=== PATIENT | female | born 1965 | race Caucasian/White ===

== ENCOUNTER 2016-12-31 17:45 | Emergency (ER) | payer OTHER ==
[2016-12-31 17:59] VITALS: BP 135/73; PULSE 75; TEMP 98.9; BMI 24.1
--- NOTE | 2016-12-31 19:10 | PDOC ---
History of Present Illness - General History Source: Patient Exam Limitations: No Limitations - History of Present Illness Initial Comments: 12/31/16 19:10 The patient is a 51 year old female, with a significant past medical history of arthritis, who presents to the emergency department with right ankle pain status post tripping and twisting her ankle this [place] the park. She reports that the pain in her lateral right ankle is a 8/10 in severity and she is unable to bear weight on her right foot. She denies any other bodily pain or injury. She has no other active medical or sugical problems. Allergies: None Social history: Never smoked <Anai Viramontes - Last Filed: 12/31/16 19:10> <Roland Muro - Last Filed: 01/03/17 07:48> - General Chief Complaint: Pain Stated Complaint: RT ANKLE TO RT HIP PAIN S/P FALL Time Seen by Provider: 12/31/16 18:50 Past History <Anai Viramontes - Last Filed: 12/31/16 19:10> - Past Medical History Other medical history: ARTHRITIS - Psycho/Social/Smoking Cessation Hx Anxiety: No Suicidal Ideation: No Smoking Status: No Smoking History: Never smoked Number of Cigarettes Smoked Daily: 0 Information on smoking cessation initiated: No <Roland Muro - Last Filed: 01/03/17 07:48> - Past Medical History Allergies/Adverse Reactions: Allergies Allergy/AdvReac Type Severity Reaction Status Date / Time No Known Allergies Allergy Verified 08/10/11 23:13 Home Medications: Ambulatory Orders Acetaminophen [Tylenol -] 500 mg PO ONCE PRN 12/31/16 Diclofenac Sodium [Diclofenac Sodium ER] 100 mg PO ASDIR 12/31/16 Review of Systems - Review of Systems Able to Perform ROS?: Yes Comments:: 12/31/16 19:10 CONSTITUTIONAL: Absent: fever, no chills, no fatigue EYES: Absent: visual changes ENT: Absent: ear pain, no sore throat CARDIOVASCULAR: Absent: chest pain, no palpitations RESPIRATORY: Absent: cough, no SOB GI: Absent: abdominal pain, no nausea, no vomiting, no constipation, no diarrhea GENITOURINARY: Absent: dysuria, no frequency, no hematuria MUSKULOSKELETAL: +Right ankle pain and swelling Absent: back pain, no arthralgia, no myalgia SKIN: Absent: rash NEURO: Absent: headache <Anai Viramontes - Last Filed: 12/31/16 19:10> *Physical Exam - Vital Signs Last Vital Signs Temp Pulse Resp BP Pulse Ox 98.9 F 75 18 135/73 96 12/31/16 17:45 12/31/16 17:45 12/31/16 17:45 12/31/16 17:45 12/31/16 17:45 - Physical Exam Comments: 12/31/16 19:11 GENERAL: Well-appearing, well-nourished. No apparent distress. HEENT: Normocephalic, atraumatic. PERRL, EOM intact. CARDIOVASCULAR: Normal S1, S2. Regular rate and rhythm. PULMONARY: Clear to auscultation bilaterally. ABDOMEN: Soft, non-distended, non-tender. EXTREMITIES: +Right ankle swelling and ecchymosis over the lateral right ankle. +Point tenderness over the lateral malleolus. No 5th metatarsal tenderness, no medial malleolar tenderness. No deformity or instability. Full pulses and no sensory or motor deficits in the foot. No gross deformities. SKIN: Warm, dry. No rash NEUROLOGICAL: No focal neurological deficits. <Anai Viramontes - Last Filed: 12/31/16 19:10> - Vital Signs Last Vital Signs Temp Pulse Resp BP Pulse Ox 98.9 F 75 18 135/73 96 12/31/16 17:45 12/31/16 17:45 12/31/16 17:45 12/31/16 17:45 12/31/16 17:45 <Roland Muro - Last Filed: 01/03/17 07:48> Medical Decision Making - Medical Decision Making 01/03/17 07:47 Ankle injury, sprain versus fracture, neurovascular intact, no deformity. Signed out to Dr. Drew 7 PM pending x-ray studies and further orthopedic evaluation and treatment. <Roland Muro - Last Filed: 01/03/17 07:48> *DC/Admit/Observation/Transfer - Attestations Scribe Attestion: 12/31/16 19:11 Documentation prepared by NENA Dos Santos, acting as medical oncologist for Roland Muro MD. <GiaAnai cody - Last Filed: 12/31/16 19:10> <Roland Muro - Last Filed: 01/03/17 07:48> Diagnosis at time of Disposition: Right ankle sprain - Discharge Dispostion Disposition: HOME Condition at time of disposition: Stable - Referrals Referrals: Nii Rodriguez MD [Staff Physician] - 1 week - Patient Instructions Printed Discharge Instructions: DI for Ankle Sprain Additional Instructions: elevate/ ice to ankle as much as possible for the next 2 days crutches for ambulation for 2-3 days ankle splint during day for next week ibuprofen/naproxen/acetaminophen as needed for pain followup with orthopedist(Dr Rodriguez) if pain/swelling persists
--- NOTE | 2016-12-31 19:12 | PDOC ---
*Physical Exam - Vital Signs Last Vital Signs Temp Pulse Resp BP Pulse Ox 98.9 F 75 18 135/73 96 12/31/16 17:45 12/31/16 17:45 12/31/16 17:45 12/31/16 17:45 12/31/16 17:45 Progress Note - Progress Note Progress Note: Care of this patient received from Dr. Adam. Right ankle x-ray negative for fracture or dislocation. Results of study discussed with the patient (language interpretation by hospital staff) Moiz wrap and ankle stirrup splint applied. Crutches with crutch walking instructions given to patient. Discharge instructions reviewed with patient by molder helper, Latrice Umana MA Patient will follow-up with orthopedic group if she has persistent pain in the ankle *DC/Admit/Observation/Transfer Diagnosis at time of Disposition: Right ankle sprain Qualifiers: Encounter type: initial encounter Involved ligament of ankle: tibiofibular ligament Qualified Code(s): S93.431A - Sprain of tibiofibular ligament of right ankle, initial encounter - Discharge Dispostion Disposition: HOME Condition at time of disposition: Stable - Referrals Referrals: Nii Rodriguez MD [Staff Physician] - 1 week - Patient Instructions Printed Discharge Instructions: DI for Ankle Sprain Additional Instructions: elevate/ ice to ankle as much as possible for the next 2 days crutches for ambulation for 2-3 days ankle splint during day for next week ibuprofen/naproxen/acetaminophen as needed for pain followup with orthopedist(Dr Rodriguez) if pain/swelling persists
== END 2016-12-31 20:07 | disposition home or self-care (01) ==
LOC: FER 17:45
DX: S93.401A Sprain of unspecified ligament of right ankle, initial encounter (principal); W18.39XA Other fall on same level, initial encounter; Y93.89 Activity, other specified; Y92.830 Public park as the place of occurrence of the external cause
CPT/HCPCS: 73610-TC-RT; 99283-25

== ENCOUNTER 2019-03-09 23:56 | Emergency (ER) | payer OTHER | END 2019-03-10 01:17 | disposition home or self-care (01) | LOC: FER 03-10 01:17 | PROC: 0H9FXZZ Drainage of Right Hand Skin, External Approach (ICD-10-PCS; principal; 2019-03-09) | PROC: 3E0234Z Introduction of Serum, Toxoid and Vaccine into Muscle, Percutaneous Approach (ICD-10-PCS; 2019-03-09) | DX: L02.511 Cutaneous abscess of right hand (principal) ==

== ENCOUNTER 2019-05-08 10:59 | Emergency (ER) | payer OTHER ==
--- NOTE | 2019-05-08 11:06 | PDOC ---
History of Present Illness - General Chief Complaint: Respiratory Stated Complaint: COUGH Time Seen by Provider: 05/08/19 11:04 History Source: Patient, Family Exam Limitations: No Limitations - History of Present Illness Initial Comments: 53 year old female with PMH hyperlipidemia presented to ED for productive white cough x5 days, 1 episode of epistaxis occurring today, nasal congestion, and pain with coughing today. Pt reported last night she was up all night coughing, preventing her from getting a good nights rest. She reported she began to feel intermittent sharp chest/back pain with coughing last night, and this AM when she blew her nose, which has been more dry recently, she saw blood on the tissue. Pt reported the pain is what concerned her the most. She also complained of headache, nasal congestion. She denied fever, vomiting, chills, lightheadedness, palpitations, lower extremity swelling. ROS General: denied fever, chills, generalized weakness. HEENT: denied sore throat, rhinorrhea, ear pain. Cardiovascular: admitted to chest pain. denied palpitations, syncope, diaphoresis. Respiratory: admitted to cough, sputum production. denied shortness of breath, hemoptysis. Gastrointestinal: denied abdominal pain, nausea, vomiting, diarrhea, constipation, blood in stool. Genitourinary: denied dysuria, increased urinary frequency, hematuria, urinary incontinence, flank pain. Back: admitted to back pain. Musculoskeletal: denied joint pain, muscle pain, joint swelling. Neurological: denied headache, dizziness, numbness, tingling, weakness. Integumentary: denied rash, laceration, abrasion. Hematologic/Lymphatic: denied bruising or bleeding. PE Constitutional: Well-nourished, Well-developed, appearing stated age. actively coughing. HEENT: head is normocephalic, atraumatic. EOMI. PERRLA. no posterior pharyngeal erythema. no tonsillar swelling or exudates bilaterally. uvula midline. no peritonsillar swelling, tenderness or abscess. no jaw tenderness or misalignment. nasal congestion noted. no septal hematoma bilaterally. Neck: supple. Full ROM. Cardiovascular: regular heart rhythm. no murmurs. no pericardial friction rub. Respiratory: clear to auscultation bilaterally. no crackles, rhonchi or wheezing. no stridor. Gastrointestinal: soft, nontender. normal bowel sounds. no rebound, guarding, masses. Back: no midline c-spine, t-spine or L-spine tenderness to palpation. no step offs. no bruising to back. no tenderness to palpation of entire back. no rash. Extremities: peripheral pulses intact. no lower extremity edema. Neurological: CN 2-12 grossly intact. moves all four extremities. Psych: awake, alert, oriented x3. follows commands. answers questions appropriately. Past History - Past Medical History Allergies/Adverse Reactions: Allergies Allergy/AdvReac Type Severity Reaction Status Date / Time No Known Allergies Allergy Verified 05/08/19 11:11 Home Medications: Ambulatory Orders Benzonatate [Tessalon Pearls -] 100 mg PO TID #12 capsule 05/08/19 Naproxen 500 mg PO BID PRN 05/08/19 Omeprazole 40 mg PO DAILY 05/08/19 Simvastatin [Zocor -] 40 mg PO HS 05/08/19 COPD: No Hypercholesterolemia: Yes - Psycho Social/Smoking Cessation Hx Smoking Status: No Smoking History: Never smoked Have you smoked in the past 12 months: No Number of Cigarettes Smoked Daily: 0 Hx Alcohol Use: No Drug/Substance Use Hx: No Medical Decision Making - Medical Decision Making 53 year old female with above PMH presented to ED for productive white cough x5 days, 1 episode of epistaxis occurring today. Initial Vital Signs Temp Pulse Resp BP Pulse Ox 98.3 F 88 18 146/100 99 05/08/19 11:00 05/08/19 11:00 05/08/19 11:00 05/08/19 11:00 05/08/19 11:00 Afebrile. No tachycardia. No tachypnea. No hypotension. No hypoxia on room air. Labs ordered: none Imaging ordered: CXR Medications ordered: tylenol 650 mg PO once EKG performed at 1123: rate 69, regular rhythm, normal axis, normal intervals, flipped T in aVL, V2, no other ST changes. -No prior to compare CXR my and Dr. Wadsworth's view: no infiltrate. no cardiomegaly. -Pending official report. Pt discharged with prescription for tessalon pearls. 05/09/19 06:29 Follow up: CXR report: Name: [facility] DEPARTMENT OF RADIOLOGY Phys: Herlinda Alfonso RESIDENT : 1965 Age: 53 Sex: F [facility] Acct: [id number] Loc: [facility]. Exam Date: 05/08/19 Status: REG [place] [address] Unit Number: [id number] EXAM #: TYPE/EXAM: RESULT: [id number] RAD/CHEST PA LAT Cough for 5 days. Chest 2 views. Comparison study July 27, 2008. Unremarkable contour of the cardiomediastinal silhouette. The lungs are well aerated without evidence of the active pulmonary disease. No evidence of pneumonia, atelectasis, CHF. No evidence of bulky hilar adenopathy. Elevated right diaphragm. No evidence of blunting of the costophrenic angles, no large pleural effusion or pneumothorax is seen. Thoracic spine scoliosis. Intact visualized osseous structures. Impression. No evidence of active pulmonary disease. Reported By: Cain Carrasquillo MD 05/08/19 1155 Discharge - Discharge Information Problems reviewed: Yes Clinical Impression/Diagnosis: Cough, Epistaxis Condition: Stable Disposition: HOME - Admission No - Additional Discharge Information Prescriptions: Benzonatate [Tessalon Pearls -] 100 mg PO TID #12 capsule - Follow up/Referral Referrals: Nader Saxena MD [Primary Care Provider] - - Patient Discharge Instructions Additional Instructions: Take Tylenol over the counter for pain. Take as advised on label. Your Chest X-ray was negative for pneumonia. Follow up with your primary care doctor within 3 days regarding your Emergency Room visit. Your care is not complete until you follow up. Return to the Emergency Department for increasing pain, chest pain, shortness of breath, vomiting, fever>103F, fever>5 days, or any other new, worsening or concerning symptoms. - Post Discharge Activity
[2019-05-08] MEDS ORDERED: ACETAMINOPHEN 325 MG TABLET (FP) PO ONE (11:08)
[2019-05-08 11:19] VITALS: BP 146/100; PULSE 88; TEMP 98.3; BMI 25.4
[2019-05-08] MEDS ORDERED: ACETAMINOPHEN 325 MG TABLET (FP) ONE (11:19)
--- NOTE | 2019-05-08 11:28 | PDOC ---
Attending Attestation - Resident Resident Name: Herlinda Alfonso - ED Attending Attestation I have performed the following: I have examined & evaluated the patient, The case was reviewed & discussed with the resident, I agree w/resident's findings & plan, Exceptions are as noted - HPI HPI: 05/08/19 11:25 53y F hx of hl, Presents with a complaint of cough for the past 8 days patient endorses a fever for the First 2 days but then resolved the patient endorses a coughWith chest congestion however states that she cannot get anything up, also notes nasal congestion which had occasional blood when she blew her nose last day which is clearing up. The patient does note that when she coughs really hard it hurts her chest. The patient denies any hemoptysis, Dyspnea on exertion , leg swelling, calf pain. is also sick with similar symptoms Of nasal congestion and cough. No recent travel. Exam: GENERAL: The patient is awake, alert, and fully oriented, Nontoxic - in no acute distress. HEAD: Normocephalic, atraumatic. EYES: extraocular movements intact, sclera anicteric, conjunctiva clear. ENT: Normal voice, Moist mucous membranes. +nasal congestion NECK: Normal range of motion, supple LUNGS:scattered crackle at R lower lung HEART: Regular rate and rhythm, normal S1 and S2 without murmur, rub or gallop. ABDOMEN: Soft, nontender, No guarding, no rebound. No CVA tenderness EXTREMITIES: Normal range of motion, no edema. Negative Homans sign, no calf tenderness NEUROLOGICAL: No facial assymetry, Normal speech, Moving all 4 extremities spontaneously and symmetrically PSYCH: Normal mood, normal affect. SKIN: Warm, Dry, normal turgor, Vital signs are normal without signs of tachycardia, Tachypnea or hypoxia Suspect viral syndrome consider possible pneumonia we will obtain a chest x-ray to rule out infiltrate. - Physicial Exam PE: 05/09/19 18:09 see above - Medical Decision Making cxr neg will dc with supportive halfway and meds for her cough pmd fu 05/09/19 18:09 see above 05/09/19 18:10 Heart Score/ECG Review - ECG Impressions Comment:: 05/08/19 11:28 Twelve-lead EKG was performed and reviewed by me. There is normal sinus rhythm with a normal rate. Rate of 69 Incomplete right bundle branch block T wave inversions in the aVL but no other lateral leads TWI in avr/v1, may be physiologic no old ekg for comparison
--- NOTE | 2019-05-09 13:19 | EKG ---
Test Reason : Blood Pressure : / mmHG Vent. Rate : 069 BPM Atrial Rate : 069 BPM P-R Int : 144 ms QRS Dur : 102 ms QT Int : 400 ms P-R-T Axes : 045 005 072 degrees QTc Int : 428 ms NORMAL SINUS RHYTHM INCOMPLETE RIGHT BUNDLE BRANCH BLOCK POSSIBLE LATERAL INFARCT , AGE UNDETERMINED ABNORMAL ECG NO PREVIOUS ECGS AVAILABLE Confirmed by OMAR RODRIGUEZ MD ([id number]) on 05/09/2019 1:18:52 PM Referred By: JOSE AVILA Confirmed By:OMAR RODRIGUEZ MD
== END 2019-05-08 12:03 | disposition home or self-care (01) ==
LOC: SUPCPDRO 10:59 → FER 10:59
DX: R04.0 Epistaxis (principal); R05 Cough; E78.5 Hyperlipidemia, unspecified
CPT/HCPCS: 71046-TC-FY; 93005; 99282-25

== ENCOUNTER → 2022-11-02 | Day surgery (SDC) | payer OTHER | END | disposition home or self-care (01) | LOC: FMAMMOTONE 08:31 | PROVIDERS: ATTEND Internal Medicine | PROC: 0HBU3ZX Excision of Left Breast, Percutaneous Approach, Diagnostic (ICD-10-PCS; principal; 2022-11-02) | DX: D05.12 Intraductal carcinoma in situ of left breast (principal); R92.0 Mammographic microcalcification found on diagnostic imaging of breast | CPT/HCPCS: 19081; 19082; 76098-TC-FY; 87899; 88305-TC; 88342-TC; A4648 ==

== ENCOUNTER → 2022-12-18 | Day surgery (SDC) | payer OTHER | END | disposition home or self-care (01) | LOC: JMAMMO-SUR 10:19 | PROVIDERS: ATTEND Surgery Surgical Oncology | PROC: BH01ZZZ Plain Radiography of Left Breast (ICD-10-PCS; principal; 2022-12-18) | DX: D05.12 Intraductal carcinoma in situ of left breast (principal) | CPT/HCPCS: 19281; 19282; A4648 ==

== ENCOUNTER 2022-12-20 03:54 | Day surgery (SDC) | payer OTHER ==
[~2022-12-20 03:54] MED LIST: BUPIVACAINE HCL/PF 0.5% (5 MG/ML) 30 ML VIAL IJ ONE
[2022-12-20] MEDS ORDERED: BUPIVACAINE HCL/PF 0.25% (2.5MG/ML) 10 ML VIAL ONE (10:46)
[2022-12-20] MEDS ORDERED: BUPIVACAINE HCL/PF 0.5% (5MG/ML) 10 ML VIAL ONE (10:47)
[2022-12-20] MEDS ORDERED: PROPOFOL 20 ML ONE (11:11)
[2022-12-20] MEDS ORDERED: MIDAZOLAM HCL 2 MG/2 ML SINGLE DOSE VIAL ONE (11:12)
[2022-12-20] MEDS ORDERED: KETOROLAC TROMETHAMINE 30 MG/1 ML VIAL ONE (11:34)
[2022-12-20] MEDS ORDERED: DEXAMETHASONE SOD PHOSPHATE 4 MG/1 ML VIAL ONE (11:34)
[2022-12-20] MEDS ORDERED: ONDANSETRON 4 MG/2 ML VIAL ONE (11:34)
[2022-12-20] MEDS ORDERED: ONDANSETRON 4 MG/2 ML VIAL IVPUSH PRN (12:53)
[2022-12-20 13:08] VITALS: RESP 18
[2022-12-20] MEDS ORDERED: LACTATED RINGERS SOLUTION 1,000 ML IV SCH (13:30)
[2022-12-21 09:14] VITALS: BP 122/58; PULSE 62; TEMP 98
== END 2022-12-20 15:30 | disposition home or self-care (01) ==
LOC: JASU-SURG 03:54
PROVIDERS: ATTEND Surgery Surgical Oncology
PROC: 0HBU0ZZ Excision of Left Breast, Open Approach (ICD-10-PCS; principal; 2022-12-20 10:30)
DX: D05.12 Intraductal carcinoma in situ of left breast (principal)
CPT/HCPCS: 76098-TC-FY; 88307-TC; 94760

== ENCOUNTER 2022-12-26 20:49 | Emergency (ER) | payer OTHER ==
[2022-12-26 20:57] VITALS: BP 134/66; PULSE 78; RESP 22; TEMP 97.8; BMI 24.9
[2022-12-26] MEDS ORDERED: morphine CARPU-JECT 4 MG/1 ML DISP.SYRIN IVPUSH ONE (22:42)
[2022-12-26] MEDS ORDERED: morphine SULFATE 4 MG/ML VIAL ONE (22:59)
[2022-12-26] MEDS ORDERED: ONDANSETRON *ODT* 4 MG TABLET SL ONE (23:12)
[2022-12-26] MEDS ORDERED: ONDANSETRON *ODT* 4 MG TABLET ONE (23:23)
== END 2022-12-26 23:45 | disposition home or self-care (01) ==
LOC: JER 20:49
DX: G89.18 Other acute postprocedural pain (principal); N64.4 Mastodynia; N63.0 Unspecified lump in unspecified breast
CPT/HCPCS: 99283-25

== ENCOUNTER 2023-05-21 12:27 | Observation (INO) | payer OTHER ==
[2023-05-21 12:44] VITALS: BMI 24.3
[2023-05-21 13:41] LABS: BASO % 0.8 % (0-2.0); EOS % 2.2 % (0-4.5); HEMATOCRIT 39.7 % (32.4-45.2); HEMOGLOBIN 12.8 GM/dL (10.7-15.3); LYMPH % 23.4 % (8-40); MCH 27.1 pg (25.7-33.7); MCHC 32.3 g/dl (32.0-36.0); MONO % 6.8 % (3.8-10.2); NEUT % 66.8 % (42.8-82.8); PLATELET COUNT 201 10^3/uL (134-434); RBC 4.73 M/mm3 (3.60-5.2); RDW 17.1 % (11.6-15.6); WHITE BLOOD COUNT 5.9 K/mm3 (4.0-10.0)
[2023-05-21 13:47] LABS: INR 1.1 (0.83-1.09); PROTHROMBIN TIME (PATIENT) 12.7 SEC (9.7-13.0)
[2023-05-21 13:50] LABS: ACTIVATED PTT 34.5 SECONDS (25.2-36.5)
[2023-05-21 14:18] LABS: POTASSIUM 4.2 mmol/L (3.5-5.1)
[2023-05-21 14:20] LABS: CALCIUM 8.8 mg/dL (8.5-10.1)
[2023-05-21 14:21] LABS: ALBUMIN 3.9 g/dl (3.4-5.0); BLOOD UREA NITROGEN 14.3 mg/dL (7-18); MAGNESIUM 2.4 mg/dL (1.8-2.4)
[2023-05-21 14:24] LABS: CREATININE 0.6 mg/dL (0.55-1.3)
[2023-05-21 14:25] LABS: BILIRUBIN,TOTAL 0.7 mg/dL (0.2-1); TOT PROT 7.4 g/dl (6.4-8.2)
[2023-05-21] MEDS ORDERED: ATORVASTATIN CA 40 MG TABLET (FP) ONE (21:02)
[2023-05-21] MEDS ORDERED: ATORVASTATIN CA 40 MG TABLET (FP) PO SCH (22:00)
[2023-05-22] MEDS ORDERED: ACETAMINOPHEN 325 MG TABLET (FP) PO PRN (00:39)
[2023-05-22] MEDS ORDERED: ACETAMINOPHEN 325 MG TABLET (FP) ONE (00:47)
[2023-05-22] MEDS ORDERED: ENOXAPARIN NA (PORCINE) 40 MG/0.4 ML DISP.SYRIN SQ ONE (07:27)
[2023-05-22] MEDS ORDERED: ENOXAPARIN NA (PORCINE) 40 MG/0.4 ML DISP.SYRIN SQ SCH (10:00)
[2023-05-22 12:05] VITALS: TEMP 98
[2023-05-22] MEDS ORDERED: TRIAMCINOLONE ACET 0.1% 60 ML LOTION TP SCH (14:00)
[2023-05-22 16:40] VITALS: BP 136/80; PULSE 74; RESP 10
== END 2023-05-22 16:40 | disposition home or self-care (01) ==
LOC: JER 12:27 → JERBED 16:52
PROVIDERS: ADMIT Internal Medicine; ATTEND Internal Medicine
PROC: 3E023GC Introduction of Other Therapeutic Substance into Muscle, Percutaneous Approach (ICD-10-PCS; principal; 2023-05-21)
DX: R94.31 Abnormal electrocardiogram [ECG] [EKG] (principal); R06.00 Dyspnea, unspecified; E78.5 Hyperlipidemia, unspecified; M19.90 Unspecified osteoarthritis, unspecified site; Z90.49 Acquired absence of other specified parts of digestive tract; Z85.3 Personal history of malignant neoplasm of breast; I10 Essential (primary) hypertension; J45.909 Unspecified asthma, uncomplicated; Z90.79 Acquired absence of other genital organ(s)
CPT/HCPCS: 36415; 71046-TC-FY; 80053; 80061; 82550; 82553; 83036; 83735; 83880; 84484; 85025; 85610; 85730; 93005; 93010; 93306-TC; 96372; 99285-25; G0378

== ENCOUNTER 2024-08-27 09:39 | Observation (INO) | payer OTHER ==
[2024-08-27 09:55] VITALS: BMI 24.9
[2024-08-27] MEDS ORDERED: ACETAMINOPHEN 500 MG TABLET (FP) ONE (10:11)
[2024-08-27] MEDS ORDERED: IBUPROFEN 600 MG TABLET (FP) PO ONE (10:11)
[2024-08-27] MEDS: IBUPROFEN 600 MG TABLET (FP) PO ONE (10:12)
[2024-08-27] MEDS: ACETAMINOPHEN 500 MG TABLET (FP) PO ONE (10:13)
[2024-08-27] MEDS ORDERED: AMOX TR/POT CLAV 875MG/125MG TABLETS (FP) ONE (11:31)
[2024-08-27] MEDS ORDERED: AZITHROMYCIN 500 MG TABLET ONE (11:31)
[2024-08-27] MEDS ORDERED: guaiFENesin/D-METHORPHAN HB 10 ML UNIT-DOSE CUPS ONE (11:32)
[2024-08-27] MEDS ORDERED: ALBUTEROL SO4 2.5/IPRATROPIUM 0.5 INH SOL 3 ML VIAL.NEB. NEB ONE (11:32)
[2024-08-27] MEDS: guaiFENesin 200 MG/10 ML 10 ML UNIT-DOSE CUPS PO ONE (11:36)
[2024-08-27] MEDS: ALBUTEROL SO4 2.5/IPRATROPIUM 0.5 INH SOL 3 ML VIAL.NEB. NEB ONE (11:36)
[2024-08-27] MEDS: AMOX TR/POT CLAV 875MG/125MG TABLETS (FP) PO ONE (11:37)
[2024-08-27] MEDS: AZITHROMYCIN 250 MG TABLET PO ONE (11:37)
[2024-08-27] MEDS ORDERED: ONDANSETRON *ODT* 4 MG TABLET ONE (12:05)
[2024-08-27] MEDS: ONDANSETRON *ODT* 4 MG TABLET SL ONE (12:06)
[2024-08-27] MEDS: SODIUM CHLORIDE 0.9% 1000 ML INFUS.BAG IV ONE (14:08)
[2024-08-27] MEDS ORDERED: METOCLOPRAMIDE HCL INJECTION 10 MG/2 ML VIAL ONE (14:11)
[2024-08-27] MEDS ORDERED: OSELTAMIVIR PHOSPHATE 75 MG CAPSULE ONE (14:11)
[2024-08-27] MEDS: OSELTAMIVIR PHOSPHATE 75 MG CAPSULE PO ONE (14:14)
[2024-08-27] MEDS: METOCLOPRAMIDE HCL INJECTION 10 MG/2 ML VIAL IVPUSH ONE (14:14)
[2024-08-27] MEDS ORDERED: VANCOMYCIN 1,000 MG VIAL (RESTRICTED TO ID ONLY) ONE (14:29)
[2024-08-27] MEDS: VANCOMYCIN 1,000 MG in DEXTROSE 5%-WATER - 250 ML IVPB ONE (14:36)
[2024-08-27 14:39] LABS: HEMATOCRIT 39.7 % (32.4-45.2); HEMOGLOBIN 13.3 G/dL (10.7-15.3); MCH 29.6 pg (25.7-33.7); MCHC 33.6 g/dl (32.0-36.0); MEAN CELL VOLUME 88.1 fl (80-96); MEAN PLT VOLUME 9.8 fl (7.5-11.1); PLATELET COUNT 164.7 10^3/uL (134-434); RBC 4.51 10^6/uL (3.60-5.2); RDW 16.4 % (11.6-15.6); WHITE BLOOD COUNT 8.2 10^3/uL (4.0-10.8)
[2024-08-27 15:01] LABS: PLATELET ESTIMATE ADEQUATE
[2024-08-27 16:08] LABS: ALBUMIN 3.9 g/dl (3.4-5.0); ALK PHOS 66 U/L (45-117); ANION GAP 10 mmol/L (4-13); BILIRUBIN,TOTAL 0.4 mg/dl (0.2-1); CALCIUM 7.7 mg/dl (8.5-10.1); CHLORIDE 108 mmol/L (98-107); CO2 20 mmol/L (21-32); CREATININE 0.8 mg/dl (0.6-1.3); GLUCOSE,RANDOM 149 mg/dl (74-106); SGOT/AST 17 U/L (15-37); SGPT/ALT 13 U/L (7-52); SODIUM 138 mmol/L (136-145); TOT PROT 6.1 g/dl (6.4-8.2)
[2024-08-27] MEDS: SODIUM CHLORIDE 1,000 ML IV SCH (16:12)
[2024-08-27] MEDS: POTASSIUM CHLORIDE ORAL LIQUID 20 MEQ/15 ML PO ONE (18:15)
[2024-08-27] MEDS: ALBUTEROL SO4 2.5/IPRATROPIUM 0.5 INH SOL 3 ML VIAL.NEB. NEB SCH (21:04)
[2024-08-27] MEDS: guaiFENesin/D-METHORPHAN TAB.ER.12H PO SCH (21:04)
[2024-08-27] MEDS: HEPARIN NA (PORCINE) 5,000 UNITS/ML 1ML VIAL SQ SCH (21:04)
[2024-08-27] MEDS: OSELTAMIVIR PHOSPHATE 75 MG CAPSULE PO SCH (21:04)
[2024-08-28 00:20] VITALS: RESP 18
[2024-08-28] MEDS: ACETAMINOPHEN 500 MG TABLET (FP) PO ONE (00:26)
[2024-08-28 09:08] LABS: BASO % 0.5 % (0-2.0); EOS % 0.4 % (0-4.5); HEMOGLOBIN 11.9 GM/dL (10.7-15.3); LYMPH % 27.7 % (8-40); MCH 28.7 pg (25.7-33.7); MCHC 33.2 g/dl (32.0-36.0); MEAN CELL VOLUME 86.5 fl (80-96); MEAN PLT VOLUME 9.2 fl (7.5-11.1); MONO % 8.3 % (3.8-10.2); NEUT % 63.1 % (42.8-82.8); PLATELET COUNT 157 10^3/uL (134-434); RBC 4.16 M/mm3 (3.60-5.2)
[2024-08-28] MEDS: FAMOTIDINE 20 MG TABLET PO SCH (10:25)
[2024-08-28] MEDS: metoPROLOL SUCCINATE 25 MG TAB.SR.24H (FP) PO SCH (10:26)
[2024-08-28 12:31] LABS: ALBUMIN 3.8 g/dl (3.4-5.0); BILIRUBIN,TOTAL 0.4 mg/dl (0.2-1); CALCIUM 8.3 mg/dl (8.5-10.1); CREATININE 0.6 mg/dl (0.6-1.3); PHOSPHOROUS 3.3 (2.5-4.9); POTASSIUM 3.8 mmol/L (3.5-5.1)
[2024-08-28 14:26] VITALS: BP 127/54; PULSE 88; TEMP 98.6
== END 2024-08-28 16:03 | disposition home or self-care (01) ==
LOC: FER 09:39 → FM/S 14:26
PROVIDERS: ADMIT Internal Medicine; ATTEND Internal Medicine
PROC: 3E0F7GC Introduction of Other Therapeutic Substance into Respiratory Tract, Via Natural or Artificial Opening (ICD-10-PCS; principal; 2024-08-27)
PROC: 3E023GC Introduction of Other Therapeutic Substance into Muscle, Percutaneous Approach (ICD-10-PCS; 2024-08-27)
PROC: 3E033GC Introduction of Other Therapeutic Substance into Peripheral Vein, Percutaneous Approach (ICD-10-PCS; 2024-08-27)
PROC: 3E0337Z Introduction of Electrolytic and Water Balance Substance into Peripheral Vein, Percutaneous Approach (ICD-10-PCS; 2024-08-27)
PROC: 3E03329 Introduction of Other Anti-infective into Peripheral Vein, Percutaneous Approach (ICD-10-PCS; 2024-08-27)
DX: J10.1 Influenza due to other identified influenza virus with other respiratory manifestations (principal); E78.5 Hyperlipidemia, unspecified; F32.A Depression, unspecified; E55.9 Vitamin D deficiency, unspecified; Z85.3 Personal history of malignant neoplasm of breast; Z90.49 Acquired absence of other specified parts of digestive tract; Z90.79 Acquired absence of other genital organ(s)
CPT/HCPCS: 0241U-QW; 36415; 71046-TC-FY; 80053; 83735; 84100; 85025; 85027; 93005; 93306-TC; 94640; 96361; 96365; 96372; 96375; 97116-GP; 97161-GP; 99285-25; G0378; J1644; Q0162